=== PATIENT | female | born 2000 | race Two or more races ===

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

== ENCOUNTER 2019-06-24 06:52 | Emergency (ER) | payer OTHER ==
[~2019-06-24] VITALS: Ht 162.6 cm; Wt 65.9 kg
[~2019-06-24 06:52] MED LIST changes: +TRAM-48 PO
--- NOTE | 2019-06-24 06:59 | PHYS DOC ---
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 No sick contacts. Took NyQuil last night. No travel overseas recently. Denies cough, earache, nasal congestion, chest pain or shortness of breath. Review of Systems Review of Systems All other systems were reviewed and found to be within normal limits, except as documented in this note. Allergies Allergies Allergies Coded Allergies Type Severity Reaction Last Updated Verified No Known Drug Allergies 08/06/14 No Physical Exam Physical Exam Constitutional: Well developed, well nourished, no acute distress, non-toxic appearance. [] HENT: Normocephalic, atraumatic, bilateral external ears normal, oropharynx moist, no oral exudates, nose normal. Posterior pharynx has a few scattered areas of erythema without exudate noted. Tympanic membranes clear bilaterally Eyes: PERRLA, EOMI, conjunctiva normal, no discharge. [] Neck: Normal range of motion, no tenderness, supple, no stridor. No lymphadenopathy Cardiovascular:Heart rate regular rhythm, no murmur [] Lungs & Thorax: Bilateral breath sounds clear to auscultation [] Abdomen: Bowel sounds normal, soft, no tenderness, no masses, no pulsatile masses. [] Skin: Warm, dry, no erythema, no rash. [] Back: No tenderness, no CVA tenderness. [] Extremities: No tenderness, no cyanosis, no clubbing, ROM intact, no edema. [] Neurologic: Alert and oriented X 3, normal motor function, normal sensory function, no focal deficits noted. [] Psychologic: Affect normal, judgement normal, mood normal. [] Current Patient Data Lab Results Laboratory Tests Test 06/24/19 07:08 Influenza Type A (Rapid) Negative Influenza Type B (Rapid) Negative Group A Streptococcus Rapid Negative EKG EKG [] Radiology/Procedures Radiology/Procedures [] Course & Med Decision Making Course & Med Decision Making Pertinent Labs and Imaging studies reviewed. (See chart for details) Seen for sore throat, fever. Check strep and flu. DDX: Strep, Viral pharyngitis, Flu, Fever, URI Dragon Disclaimer Yoon Disclaimer This electronic medical record was generated, in whole or in part, using a voice recognition dictation system. Departure Departure: Impression: Primary Impression: Viral pharyngitis Disposition: 01 HOME, SELF-CARE Condition: STABLE Referrals: PCP,UNKNOWN (PCP) Patient Instructions: Viral Pharyngitis Additional Instructions: You may use motrin and tylenol for fever and body aches. Push oral fluids. Return for worsening symptoms. Scripts Prednisone (PREDNISONE) 50 Mg Tablet 1 TAB PO DAILY for pharyngitis, #5 TAB You received this medication in the emergency room today. You will starting your next dose tomorrow. Prov: JANUARY LOVETT DO 06/24/19 JANUARY LOVETT DO Jun 24, 2019 06:59
[2019-06-24 07:18] VITALS: BP 127/87
[2019-06-24 07:42] LABS: INFLUENZA A PATIENT NEGATIVE (NEGATIVE); INFLUENZA B PATIENT NEGATIVE (NEGATIVE)
[2019-06-24] MEDS ORDERED: PRED50TA PO (07:47)
== END 2019-06-24 07:50 | disposition home or self-care (01) ==
LOC: ER 06:52
DX: J02.8 Acute pharyngitis due to other specified organisms (principal); B97.89 Other viral agents as the cause of diseases classified elsewhere
CPT/HCPCS: 87070; 87804; 87880; 99284